=== PATIENT | female | born 1945 | race Caucasian/White ===

== ENCOUNTER 2022-11-15 12:47 | Outpatient (REF) | payer MEDICARE, SELFPAY ==
--- NOTE | 2022-11-15 12:53 | EEG_ITS ---
PROCEDURE: 24-hour ambulatory EEG. FINDINGS: The waking background activity consists of a well-defined moderate voltage posterior 10 to 11 Hz alpha frequency obtained symmetrically and attenuates well with eye opening, all low-voltage fast frequencies predominate anteriorly. Drowsiness is characterized by diffuse theta slowing. During sleep, symmetrical frontocentral sleep spindles and vertex sharp transients developed over both hemispheres. Arousals are unremarkable. The patient remains asymptomatic but pressed the button on 2 occasions. No change in background activity is noted. artifact is seen over the left hemisphere. No focal, lateralizing, or paroxysmal discharges are seen. IMPRESSION: This 24-hour ambulatory EEG is within normal limits. MD SIMEON Martini/CIERA / [id number]
== END 2022-11-15 12:48 | disposition home or self-care (01) ==
LOC: HO.NEURO 12:47
PROVIDERS: PCP Family Medicine; Visit Provider Psychiatry & Neurology Neurology
DX: G40.909 Epilepsy, unspecified, not intractable, without status epilepticus (principal)
CPT/HCPCS: 95708